=== PATIENT | male | born 1955 | race Two or more races ===

== ENCOUNTER 2023-12-20 10:25 | Outpatient (RCR) | payer MEDICARE, SELFPAY ==
--- NOTE | 2023-12-20 11:42 | CTCFLWUP_ITS ---
[facility] [address] [place], [place] [address] FOLLOW-UP NOTE Date: 12/20/2023 MR#: [id number] Name: JEAN-PIERRE LARA : 1955 Dx: C61 Malignant neoplasm of prostate Identification. Patient with history of prostate CA underwent radical prostatectomy 02/27/2017. Rising PSA noted and postop XRT was completed June 05 6840 cGy. PSAs has remained since with most recent PSA 12/12/2023 being less than 0.10. Patient states that he does not like the side effect of shots and would like to suspend for the time being. I was okay with that but will check his PSA in 3 months as well. Electronically signed by: Michael Feliciano M.D. 12/20/2023 11:40 AM
== END 2024-01-12 23:59 | disposition home or self-care (01) ==
LOC: SCTC 10:25
PROVIDERS: PCP Family Medicine; Referring Provider Family Medicine; Visit Provider Radiology Therapeutic Radiology
DX: C61 Malignant neoplasm of prostate (principal); Z90.79 Acquired absence of other genital organ(s); Z92.3 Personal history of irradiation
CPT/HCPCS: 99213; G0463

== ENCOUNTER → 2024-01-15 | Outpatient (CLI) | payer MEDICARE, SELFPAY ==
[2024-01-15 16:42] LABS: Prostate Specific Antigen < 0.10 ng/mL (0-4.00)
== END | disposition home or self-care (01) ==
LOC: COPL 15:29
PROVIDERS: PCP Family Medicine; Referring Provider Urology; Visit Provider Urology
DX: C61 Malignant neoplasm of prostate (principal)
CPT/HCPCS: 36415; 84153

== ENCOUNTER → 2024-01-25 | Outpatient (BNVA) | payer MEDICARE, SELFPAY | END | disposition home or self-care (01) | PROVIDERS: PCP Family Medicine; Referring Provider Family Medicine; Visit Provider Urology | DX: C61 Malignant neoplasm of prostate (principal); N52.9 Male erectile dysfunction, unspecified; Z92.3 Personal history of irradiation; I10 Essential (primary) hypertension; Z80.42 Family history of malignant neoplasm of prostate; E66.9 Obesity, unspecified; Z68.31 Body mass index [BMI] 31.0-31.9, adult; E78.00 Pure hypercholesterolemia, unspecified | CPT/HCPCS: 81003; 99212; G0463 ==

== ENCOUNTER → 2024-03-19 | Outpatient (CLI) | payer MEDICARE, SELFPAY ==
[2024-03-19 14:54] LABS: Prostate Specific Antigen < 0.10 ng/mL (0-4.00)
== END | disposition home or self-care (01) ==
LOC: SCTO 12:30
PROVIDERS: PCP Family Medicine; Referring Provider Radiology Therapeutic Radiology; Visit Provider Radiology Therapeutic Radiology
DX: C61 Malignant neoplasm of prostate (principal)
CPT/HCPCS: 36415; 84153

== ENCOUNTER 2024-03-20 13:04 | Outpatient (RCR) | payer MEDICARE, SELFPAY ==
--- NOTE | 2024-03-20 14:36 | CTCFLWUP_ITS ---
[facility] [address] [place], [place] [address] FOLLOW-UP NOTE Date: 03/20/2024 MR#: [id number] Name: JEAN-PIERRE LARA : 1955 Dx: C61 Malignant neoplasm of prostate Identification. 69-year-old prostate CA underwent radical prostatectomy 02/27/2017 and rising PSA. Postop XRT completed June 06, 2023 6840 cGy. Received concomitant Lupron last received 10/04/2023. Still has some symptoms of prostatism including nocturia and fatigue. Most recent PSA March 19, 2024 was less than 0.10. Will see him back in 6 months with another PSA. Electronically signed by: Michael Feliciano M.D. 03/20/2024 2:34 PM
== END 2024-04-11 23:59 | disposition home or self-care (01) ==
LOC: SCTC 13:04
PROVIDERS: PCP Family Medicine; Referring Provider Internal Medicine Hematology & Oncology; Visit Provider Internal Medicine Hematology & Oncology
DX: C61 Malignant neoplasm of prostate (principal); Z90.79 Acquired absence of other genital organ(s); Z92.3 Personal history of irradiation
CPT/HCPCS: 99213; G0463

== ENCOUNTER → 2024-07-21 | Outpatient (CLI) | payer MEDICARE, SELFPAY ==
[2024-07-21 17:40] LABS: Prostate Specific Antigen < 0.10 ng/mL (0-4.00)
== END | disposition home or self-care (01) ==
LOC: COPL 16:03
PROVIDERS: PCP Family Medicine; Referring Provider Urology; Visit Provider Urology
DX: C61 Malignant neoplasm of prostate (principal)
CPT/HCPCS: 36415; 84153

== ENCOUNTER → 2024-07-25 | Outpatient (BNVA) | payer MEDICARE, SELFPAY | END | disposition home or self-care (01) | PROVIDERS: PCP Family Medicine; Referring Provider Family Medicine; Visit Provider Urology | DX: C61 Malignant neoplasm of prostate (principal); N52.9 Male erectile dysfunction, unspecified; Z92.3 Personal history of irradiation; I10 Essential (primary) hypertension; Z80.42 Family history of malignant neoplasm of prostate; E66.9 Obesity, unspecified; Z68.30 Body mass index [BMI] 30.0-30.9, adult; E78.00 Pure hypercholesterolemia, unspecified | CPT/HCPCS: 81003; 99212; G0463 ==

== ENCOUNTER → 2024-07-29 | Outpatient (CLI) | payer MEDICARE, SELFPAY ==
[2024-07-29 10:56] LABS: Basophils # (Auto) 0.1 Thou/mm3 (0.0-0.2); Basophils % (Auto) 1 % (0-2.5); Eosinophils # (Auto) 0.3 Thou/mm3 (0.0-0.5); Eosinophils % (Auto) 5 % (0-10); Hematocrit 44.8 % (41.0-53.0); Immature Granulocytes % (Auto) 0 % (0-0); Immature Granulocytes Auto 0.01 Thou/mm3 (0.00-0.00); Lymphocytes # (Auto) 1.7 Thou/mm3 (1.0-4.8); Lymphocytes % (Auto) 27 % (10-50); Mean Corpuscular HGB Conc 33.5 g/dl (31.0-37.0); Mean Corpuscular Hemoglobin 32.5 pg (25.0-35.0); Mean Corpuscular Volume 97 fL (80-100); Monocytes # (Auto) 0.6 Thou/mm3 (0.0-0.8); Monocytes % (Auto) 9 % (0-12); Neutrophils # (Auto) 3.7 Thou/mm3 (1.8-7.7); Neutrophils % (Auto) 58 % (37-80); Nucleated Red Blood Cell % 0 /100 WBC (0); Platelet Count 218 Thou/mm3 (140-440); RDW Standard Deviation 48.9 fL (35.1-43.9); Red Blood Count 4.62 Miln/mm3 (4.50-5.90); White Blood Count 6.4 Thou/mm3 (3.8-10.6)
[2024-07-29 11:14] LABS: Sed Rate (ESR) 1 mm/hr (0-20)
[2024-07-29 11:19] LABS: Alanine Aminotransferase 54 U/L (10-49); Albumin, Serum 4.7 gm/dL (3.4-4.8); Albumin/Globulin Ratio 2.6 (1.2-2.2); Alkaline Phosphatase 76 U/L (46-116); Anion Gap 10 (7-16); Aspartate Amino Transferase 45 U/L (0-34); BUN/Creatinine Ratio 11 Ratio (12-20); Bilirubin,Total 0.7 mg/dL (0.3-1.2); Blood Urea Nitrogen 10 mg/dL (9-23); Calcium 9.5 mg/dL (8.3-10.6); Calcium (Corrected) 9.5 mg/dL (8.5-10.1); Carbon Dioxide 28.1 mMol/L (20.0-31.0); Cardiac Risk Estimate 3.2 RATIO (4.0-6.7); Chloride 105 mMol/L (98-107); Cholesterol 135 mg/dL (132-200); Creatinine (Component) 0.9 mg/dL (0.6-1.3); Free T4 (Free Thyroxine) 1.02 ng/dL (0.89-1.76); Globulin 1.8 gm/dL (2.3-3.5); Glucose 129 mg/dL (74-106); HDL Cholesterol 42 mg/dL (40-60); LDL Cholesterol,Calculated 57 mg/dL (0-130); Osmolality,Calculated 285 (275-295); Potassium 4.4 mMol/L (3.4-5.1); Sodium 143 mMol/L (136-145); Thyroid Stimulating Hormone 1.46 uIU/mL (0.55-4.78); Total Protein 6.5 gm/dL (5.7-8.2); Triglycerides 181 mg/dL (30-150); eGFR > 60 See Note
[2024-07-29 12:44] LABS: Cocci Serology, IgM Negative (Negative)
[2024-07-30 13:25] LABS: Cocci Serology, IgG Negative (Negative)
== END | disposition home or self-care (01) ==
PROVIDERS: PCP Family Medicine; Referring Provider Family Medicine; Visit Provider Family Medicine
DX: D50.0 Iron deficiency anemia secondary to blood loss (chronic) (principal); E78.1 Pure hyperglyceridemia; Z13.1 Encounter for screening for diabetes mellitus
CPT/HCPCS: 36415; 80053; 80061; 84439; 84443; 85025; 85652; 86331; 86635

== ENCOUNTER → 2024-08-01 | Outpatient (CLI) | payer MEDICARE, SELFPAY ==
[2024-08-01 11:30] LABS: Glucose Estimated Average 117 mg/dL (80-131); Hemoglobin A1C 5.7 % Hgb (4.8-6.0)
== END | disposition home or self-care (01) ==
LOC: COPL 10:00
PROVIDERS: PCP Family Medicine; Referring Provider Family Medicine; Visit Provider Family Medicine
DX: E11.65 Type 2 diabetes mellitus with hyperglycemia (principal)
CPT/HCPCS: 36415; 83036

== ENCOUNTER → 2024-09-15 | Outpatient (CLI) | payer MEDICARE, SELFPAY ==
[2024-09-15 13:23] LABS: Prostate Specific Antigen < 0.10 ng/mL (0-4.00)
== END | disposition home or self-care (01) ==
PROVIDERS: PCP Family Medicine; Referring Provider Radiology Therapeutic Radiology; Visit Provider Radiology Therapeutic Radiology
DX: C61 Malignant neoplasm of prostate (principal)
CPT/HCPCS: 36415; 84153

== ENCOUNTER 2024-09-17 13:31 | Outpatient (RCR) | payer MEDICARE, SELFPAY ==
--- NOTE | 2024-09-17 14:44 | CTCFLWUP_ITS ---
[facility] [address] [place], [place] [address] FOLLOW-UP NOTE Date: 09/17/2024 MR#: [id number] Name: JEAN-PIERRE LARA : 1955 Dx: C61 Malignant neoplasm of prostate Patient with prostate CA status post robotic surgery 02/27/2017 T3a N0 had postop radiation for rising PSA 0.18 on 03/02/2023. Postop radiation 6840 centigray completed May 2023 Decided to stop at 9 months worth or 3 injections rather than 12 months because of side effects. Patient's PSA has remained low including less than 0.1 on 09/15/2024. Still having nocturia symptoms getting up up to 3 times at night, otherwise denies any pelvic symptoms. Patient is doing generally well and asked to return in 6 months with a PSA just prior. Electronically signed by: Michael Feliciano M.D. 09/17/2024 2:42 PM
== END 2024-10-12 23:59 | disposition home or self-care (01) ==
LOC: SCTC 13:31
PROVIDERS: PCP Family Medicine; Referring Provider Family Medicine; Visit Provider Radiology Therapeutic Radiology
DX: C61 Malignant neoplasm of prostate (principal); Z90.79 Acquired absence of other genital organ(s); Z92.3 Personal history of irradiation
CPT/HCPCS: 99212; G0463

== ENCOUNTER → 2024-12-26 | Outpatient (CLI) | payer MEDICARE, SELFPAY | END | disposition home or self-care (01) | LOC: SLDO 14:49 | PROVIDERS: PCP Family Medicine; Referring Provider Family Medicine; Visit Provider Family Medicine | DX: N39.0 Urinary tract infection, site not specified (principal) | CPT/HCPCS: 87086 ==

== ENCOUNTER → 2025-01-02 | Outpatient (CLI) | payer MEDICARE, SELFPAY ==
--- NOTE | 2025-01-02 11:36 | EKG_ITS ---
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
== END | disposition home or self-care (01) ==
PROVIDERS: PCP Family Medicine; Referring Provider Ophthalmology; Visit Provider Ophthalmology
DX: Z01.810 Encounter for preprocedural cardiovascular examination (principal)
CPT/HCPCS: 93005

== ENCOUNTER → 2025-01-12 | Outpatient (CLI) | payer MEDICARE, SELFPAY ==
[2025-01-13 13:17] LABS: Prostate Specific Antigen < 0.10 ng/mL (0-4.00)
== END | disposition home or self-care (01) ==
LOC: COPL 13:47
PROVIDERS: PCP Family Medicine; Referring Provider Urology; Visit Provider Urology
DX: R97.20 Elevated prostate specific antigen [PSA] (principal)
CPT/HCPCS: 36415; 84153

== ENCOUNTER → 2025-01-14 | Outpatient (CLI) | payer MEDICARE, SELFPAY ==
--- NOTE | 2025-01-14 14:30 | XR_ITS ---
Examination: Breast ultrasound, unilateral, left Date and time of exam: January 14, 2025, 1446 hours INDICATIONS: Palpable lump retroareolar region left breast with pain noticed beginning several weeks ago, mammogram July 12, 2022 increased retroareolar density 24 mm in dimension Technique: Real-time manriquez scale ultrasonographic imaging performed left breast including all 4 quadrants as well as nipple retroareolar and axillary region. Findings: Retroareolar probable glandular tissue 19 x 9 x 18 mm IMPRESSION: BI-RADS Category 3: Probably benign findings Recommend 1 additional 6-month left breast sonogram follow-up to document stability of probable benign retroareolar glandular tissue
== END | disposition home or self-care (01) ==
LOC: CDIM 14:25
PROVIDERS: PCP Family Medicine; Referring Provider Family Medicine; Visit Provider Family Medicine
DX: R92.8 Other abnormal and inconclusive findings on diagnostic imaging of breast (principal)
CPT/HCPCS: 76641

== ENCOUNTER → 2025-01-16 | Outpatient (BNVA) | payer MEDICARE, SELFPAY | END | disposition home or self-care (01) | PROVIDERS: PCP Family Medicine; Referring Provider Family Medicine; Visit Provider Urology | DX: C61 Malignant neoplasm of prostate (principal); N52.9 Male erectile dysfunction, unspecified; Z90.79 Acquired absence of other genital organ(s); I10 Essential (primary) hypertension | CPT/HCPCS: 81003; 99212; G0463 ==